=== PATIENT | female | born 1935 ===

== ENCOUNTER 2018-01-29 17:01 | Emergency (ER) | payer OTHER ==
[~2018-01-29] VITALS: Ht 157.5 cm; Wt 55.8 kg
[~2018-01-29 17:01] MED LIST: ASA81 MG PO; ATENOLOL25 MG; AVAPRO75 MG PO; CALTRATE 600600 MG; CATAFLAM50 MG PO; FOSAMAX5 MG PO; GILTUSS TR TAB1 EACH PO; GLIMEPIRIDE2 MG; LIPITOR20 MG PO; NABUMETONE750 MG PO; SYNTHROID175 MCG PO
== END 2018-01-29 19:49 | disposition home or self-care (01) ==
LOC: ER 17:01
DX: S20.212A Contusion of left front wall of thorax, initial encounter (principal); S20.211A Contusion of right front wall of thorax, initial encounter; V49.9XXA Car occupant (driver) (passenger) injured in unspecified traffic accident, initial encounter; Y93.89 Activity, other specified; Y92.488 Other paved roadways as the place of occurrence of the external cause; Y99.8 Other external cause status